=== PATIENT | male | born 1970 | race Caucasian/White ===

== ENCOUNTER → 2016-12-22 | Emergency (ER) | payer BC, OTHER ==
[~2016-12-22] VITALS: Ht 175.3 cm; Wt 81.6 kg
[~2016-12-22] MED LIST: CLINDAMYCIN HC150 MG ORAL; DOCUSATE SODIU100 MG ORAL; FERROUS SULFAT325 MG ORAL; FOLIC ACID1 MG ORAL; HYDROCODON-ACE1 EA15 ORAL; LORazepam 1mg tab ORAL ONE; MIRTAZAPINE15 M3 ORAL; OMEPRAZOLE40 M1 ORAL; PAROXETINE HC12.5 MG ORAL; QUETIAPINE FUM400 MG ORAL; SYNTHROID150 MCG ORAL
[2016-12-22 17:08] VITALS: BP 127/88
[2016-12-22 17:24] LABS: MEAN CORPUSCULAR HEMOGLOBIN 33.7 PG (27.0-31.0); MEAN CORPUSCULAR HGB CONC 33.7 G/DL (32.0-36.0); MEAN CORPUSCULAR VOLUME 100 FL (80-99); MEAN PLATELET VOLUME 6.2 FL (6.5-10.1); PLATELET COUNT 244 K/UL (150-450); RED BLOOD COUNT 3.89 M/UL (4.70-6.10); RED CELL DISTRIBUTION WIDTH 14.7 % (11.6-14.8); WHITE BLOOD COUNT 7.5 K/UL (4.8-10.8)
[2016-12-22 17:36] LABS: ACETAMINOPHEN < 10 ug/mL (10-30); ALANINE AMINOTRANSFERASE 13 U/L (3-41); ALBUMIN/GLOBULIN RATIO 1.4 (1.0-2.7); ALCOHOL 230 mg/dL; ANION GAP 29 (5-15); ASPARTATE AMINO TRANSFERASE 20 U/L (5-40); CARBON DIOXIDE 15 mEQ/L (20-30); CHLORIDE 94 mEQ/L (98-107); CREATININE 1.1 mg/dL (0.7-1.2); GLOMERULAR FILTRATION RATE > 60 mL/min (>60); HEMOLYSIS 7; LIPASE 20 U/L (< 60); POTASSIUM 3.6 mEQ/L (3.4-4.9); SODIUM 138 mEQ/L (135-145); TOTAL PROTEIN 7.2 g/dL (6.6-8.7)
[2016-12-22 18:11] LABS: LYMPHOCYTES % (MANUAL) 12 % (20-45); NEUTROPHILS % (MANUAL) 83 % (45-75); TOTAL CELLS COUNTED 100
[2016-12-22 18:12] LABS: ANISOCYTOSIS 1+; BAND NEUTROPHILS % (MANUAL) 0 % (0-8); BASOPHILS % (MANUAL) 0 % (0-2); EOSINOPHILS % (MANUAL) 0 % (0-3); HYPOCHROMASIA 1+; PLATELET ESTIMATE ADEQUATE; PLATELET MORPHOLOGY NORMAL
[2016-12-22 19:30] VITALS: BP 120/89
[2016-12-22 20:25] VITALS: BP 110/84
[2016-12-22 22:15] VITALS: BP 112/82
--- NOTE | 2016-12-22 23:45 | Emergency Room Report ---
History of Present Illness General Chief Complaint: Alcohol Intoxication Source: EMS (Tereza Osuna) Present Illness HPI 46-year-old male presents to the emergency department by ambulance for drinking alcohol excessively in addition to taking pain medications. Patient states he has a history of schizophrenia and she does not know what medications he takes however he states he has them with him. Patient is reporting chronic dental pain due to poor dentition and states that he is 10 out of 10 pain and he wants to end it all. He states earlier today he was having suicidal ideations due to chronic pain. He states she took some of his prescribed [place]. Patient alludes to potential overdose however he does not admit not taken. Patient reports nausea and vomiting. Denies fevers or chills. Denies blood in the vomit or stool. denies black tarry stools. Denies head trauma or fall. Denies abdominal pain. Denies CP, Palpitations, LOC, AMS, dizziness, Changes in Vision , Sensation, paresthesias, or a sudden severe headache. (Tereza Osuna) Allergies: Coded Allergies: PENICILLINS (Verified Allergy, Unknown, 12/22/16) Patient History Past Medical History: see triage record Past Surgical History: none Pertinent Family History: none Reviewed Nursing Documentation: PMH: Agreed, PSxH: Agreed (Tereza Osuna) Nursing Documentation-PMH Past Medical History: No History, Except For Hx Cancer: Yes - THYROID History Of Psychiatric Problem: Yes - ETOH ABUSE, SCHIZO, DEPRESSION (Tereza Osuna) Review of Systems All Other Systems: negative except mentioned in HPI (Tereza Osuna) Physical Exam Vital Signs Date Time Temp Pulse Resp B/P Pulse Ox O2 Delivery O2 Flow Rate FiO2 12/22/16 15:37 98.1 103 20 127/88 98 Room Air Sp02 EP Interpretation: reviewed, abnormal - tachycardic at 103 bpm General Appearance: no apparent distress, alert, GCS 15, non-toxic Head: normocephalic, atraumatic Eyes: bilateral eye PERRL - no pinpoint pupils, bilateral eye normal inspection ENT: hearing grossly normal, normal pharynx, no angioedema, normal voice, other - no fluctuance to the gumline suggesting abscess or gingivitis. pt. does not have significant dental issues such as cracked teeth. Neck: full range of motion, supple/symm/no masses Respiratory: lungs clear, normal breath sounds, no wheezing, speaking full sentences Cardiovascular #1: regular rate, rhythm, no edema Gastrointestinal: normal bowel sounds, non tender, soft, no guarding, no rebound Rectal: deferred Genitourinary: normal inspection, no CVA tenderness Musculoskeletal: back normal, gait/station normal, normal range of motion, non- tender Neurologic: alert, oriented x3, responsive, motor strength/tone normal, sensory intact, normal gait, speech normal Psychiatric: judgement/insight normal, memory normal, depressed affect - depressed affect and verbalizes chronic dental pain. , anxious, other - pt. is somewhat paranoid, and anxious Skin: normal color, no rash, warm/dry, well hydrated (Tereza Osuna P.AMiroslava) Medical Decision Making PA Attestation Dr. Collado is my supervising Physician whom patient management has been discussed with. (Tereza Osuna P.AMiroslava) Diagnostic Impression: Primary Impression: Acute alcoholic intoxication Qualified Codes: F10.920 - Alcohol use, unspecified with intoxication, uncomplicated ER Course 46-year-old male presents to the emergency department by ambulance for drinking alcohol excessively in addition to taking pain medications. Patient states he has a history of schizophrenia and she does not know what medications he takes however he states he has them with him. Patient is reporting chronic dental pain due to poor dentition and states that he is 10 out of 10 pain and he wants to end it all. He states earlier today he was having suicidal ideations due to chronic pain. He states she took some of his prescribed [place]. Patient alludes to potential overdose however he does not admit not taken. Patient reports nausea and vomiting. Denies fevers or chills. Denies blood in the vomit or stool. denies black tarry stools. Denies head trauma or fall. Denies abdominal pain. Denies CP, Palpitations, LOC, AMS, dizziness, Changes in Vision , Sensation, paresthesias, or a sudden severe headache. Pt has paranoid and depressed affect. Ddx considered but are not limited to OD, SI/HI, psychosis, UTI, intoxication Vital signs: are WNL, pt. is afebrile H&PE are most consistent with behavioral/mental health issue, possible overdose as pt. keeps eluding to OD and depression about chronic dental pain. ORDERS: -CBC, CMP: unremarkable other than dehydration and low glucose. -accucheck : 46, recheck: 86, recheck: 89 -UA: negative for infection see results attached. -UDS: positive only for THC -Salicylates and Acetaminophen - no acute intoxication. -Serum ETOH : 290 ED INTERVENTIONS: - 25 ml D50 -- RN states pt. does not have line, and gave juice instead DISPOSITION: awaiting re-assessment of SI/HI upon sobering. pt. signed out to Dr. Samano Labs Test 12/22/16 16:58 White Blood Count 7.5 K/UL (4.8-10.8) Red Blood Count 3.89 M/UL (4.70-6.10) Hemoglobin 13.1 G/DL (14.2-18.0) Hematocrit 38.9 % (42.0-52.0) Mean Corpuscular Volume 100 FL (80-99) Mean Corpuscular Hemoglobin 33.7 PG (27.0-31.0) Mean Corpuscular Hemoglobin Concent 33.7 G/DL (32.0-36.0) Red Cell Distribution Width 14.7 % (11.6-14.8) Platelet Count 244 K/UL (150-450) Mean Platelet Volume 6.2 FL (6.5-10.1) Neutrophils (%) (Auto) % (45.0-75.0) Lymphocytes (%) (Auto) % (20.0-45.0) Monocytes (%) (Auto) % (1.0-10.0) Eosinophils (%) (Auto) % (0.0-3.0) Basophils (%) (Auto) % (0.0-2.0) Differential Total Cells Counted 100 Neutrophils % (Manual) 83 % (45-75) Lymphocytes % (Manual) 12 % (20-45) Monocytes % (Manual) 5 % (1-10) Eosinophils % (Manual) 0 % (0-3) Basophils % (Manual) 0 % (0-2) Band Neutrophils 0 % (0-8) Platelet Estimate Adequate Platelet Morphology Normal Hypochromasia 1+ Anisocytosis 1+ Sodium Level 138 mEQ/L (135-145) Potassium Level 3.6 mEQ/L (3.4-4.9) Chloride Level 94 mEQ/L (98-107) Carbon Dioxide Level 15 mEQ/L (20-30) Anion Gap 29 (5-15) Blood Urea Nitrogen 18 mg/dL (7-23) Creatinine 1.1 mg/dL (0.7-1.2) Estimat Glomerular Filtration Rate > 60 mL/min (>60) Glucose Level 43 mg/dL (74-106) Calcium Level 9.0 mg/dL (8.6-10.2) Total Bilirubin 0.4 mg/dL (0.0-1.2) Aspartate Amino Transf (AST/SGOT) 20 U/L (5-40) Alanine Aminotransferase (ALT/SGPT) 13 U/L (3-41) Alkaline Phosphatase 87 U/L (40-129) Total Protein 7.2 g/dL (6.6-8.7) Albumin 4.3 g/dL (3.5-5.2) Globulin 2.9 g/dL Albumin/Globulin Ratio 1.4 (1.0-2.7) Lipase 20 U/L (< 60) Salicylates Level < 1 mg/dL (10-30) Urine Opiates Screen Negative (NEGATIVE) Acetaminophen Level < 10 ug/mL (10-30) Urine Barbiturates Screen Negative (NEGATIVE) Phencyclidine (PCP) Screen Negative (NEGATIVE) Urine Amphetamines Screen Negative (NEGATIVE) Urine Benzodiazepines Screen Negative (NEGATIVE) Urine Cocaine Screen Negative (NEGATIVE) Urine Marijuana (THC) Screen Positive (NEGATIVE) Serum Alcohol 230 mg/dL (Tereza Osuna P.A.) ER Course Patient is medically cleared for psychiatric evaluation. The patient is was noted to be on multiple psychiatric medications. Patient was discussed with psychiatric consult. Labs Test 12/22/16 16:58 White Blood Count 7.5 K/UL (4.8-10.8) Red Blood Count 3.89 M/UL (4.70-6.10) Hemoglobin 13.1 G/DL (14.2-18.0) Hematocrit 38.9 % (42.0-52.0) Mean Corpuscular Volume 100 FL (80-99) Mean Corpuscular Hemoglobin 33.7 PG (27.0-31.0) Mean Corpuscular Hemoglobin Concent 33.7 G/DL (32.0-36.0) Red Cell Distribution Width 14.7 % (11.6-14.8) Platelet Count 244 K/UL (150-450) Mean Platelet Volume 6.2 FL (6.5-10.1) Neutrophils (%) (Auto) % (45.0-75.0) Lymphocytes (%) (Auto) % (20.0-45.0) Monocytes (%) (Auto) % (1.0-10.0) Eosinophils (%) (Auto) % (0.0-3.0) Basophils (%) (Auto) % (0.0-2.0) Differential Total Cells Counted 100 Neutrophils % (Manual) 83 % (45-75) Lymphocytes % (Manual) 12 % (20-45) Monocytes % (Manual) 5 % (1-10) Eosinophils % (Manual) 0 % (0-3) Basophils % (Manual) 0 % (0-2) Band Neutrophils 0 % (0-8) Platelet Estimate Adequate Platelet Morphology Normal Hypochromasia 1+ Anisocytosis 1+ Sodium Level 138 mEQ/L (135-145) Potassium Level 3.6 mEQ/L (3.4-4.9) Chloride Level 94 mEQ/L (98-107) Carbon Dioxide Level 15 mEQ/L (20-30) Anion Gap 29 (5-15) Blood Urea Nitrogen 18 mg/dL (7-23) Creatinine 1.1 mg/dL (0.7-1.2) Estimat Glomerular Filtration Rate > 60 mL/min (>60) Glucose Level 43 mg/dL (74-106) Calcium Level 9.0 mg/dL (8.6-10.2) Total Bilirubin 0.4 mg/dL (0.0-1.2) Aspartate Amino Transf (AST/SGOT) 20 U/L (5-40) Alanine Aminotransferase (ALT/SGPT) 13 U/L (3-41) Alkaline Phosphatase 87 U/L (40-129) Total Protein 7.2 g/dL (6.6-8.7) Albumin 4.3 g/dL (3.5-5.2) Globulin 2.9 g/dL Albumin/Globulin Ratio 1.4 (1.0-2.7) Lipase 20 U/L (< 60) Salicylates Level < 1 mg/dL (10-30) Urine Opiates Screen Negative (NEGATIVE) Acetaminophen Level < 10 ug/mL (10-30) Urine Barbiturates Screen Negative (NEGATIVE) Phencyclidine (PCP) Screen Negative (NEGATIVE) Urine Amphetamines Screen Negative (NEGATIVE) Urine Benzodiazepines Screen Negative (NEGATIVE) Urine Cocaine Screen Negative (NEGATIVE) Urine Marijuana (THC) Screen Positive (NEGATIVE) Serum Alcohol 230 mg/dL (Andrew Samano) Last Vital Signs Date Time Temp Pulse Resp B/P Pulse Ox O2 Delivery O2 Flow Rate FiO2 12/22/16 17:08 98.1 79 20 127/88 98 Room Air (Tereza Osuna) Signed Out To: Dr. Samano (Tereza Osuna) Referrals: ROSALIA MESA (PCP) Tereza Osuna Dec 22, 2016 23:45 Andrew Samano Dec 23, 2016 06:28
[2016-12-23] VITALS (8 sets, daily range): BP systolic 130–150; BP diastolic 70–98
--- NOTE | 2016-12-23 06:34 | Emergency Room Report ---
History of Present Illness General Chief Complaint: Alcohol Intoxication Source: Patient, EMS Present Illness HPI Pt signed out to me by Dr. Samano, original seen for etoh intoxication with passive SI. Observed in ED for ~ 12 hours and sober on reexam with current denial of SI. Plan for Psych eval this am. Allergies: Coded Allergies: PENICILLINS (Verified Allergy, Unknown, 12/22/16) Patient History Past Medical History: see triage record Social History: Reports: alcohol use, drug use - thc, Denies: smoking Reviewed Nursing Documentation: PMH: Agreed Nursing Documentation-PMH Past Medical History: No History, Except For Hx Cancer: Yes - THYROID History Of Psychiatric Problem: Yes - ETOH ABUSE, SCHIZO, DEPRESSION Review of Systems All Other Systems: negative except mentioned in HPI Physical Exam Vital Signs Date Time Temp Pulse Resp B/P Pulse Ox O2 Delivery O2 Flow Rate FiO2 12/22/16 15:37 98.1 103 20 127/88 98 Room Air General Appearance: well appearing, no apparent distress, alert Neck: full range of motion, supple Gastrointestinal: soft Medical Decision Making Diagnostic Impression: Primary Impression: Acute alcoholic intoxication Qualified Codes: F10.920 - Alcohol use, unspecified with intoxication, uncomplicated ER Course Currently patient pending evaluation by ED psych. Signed out to Dr. Samano after overnight observation. Mild tremor requiring small of Ativan. No [place] withdrawal noted. Labs reviewed, positive primarily for alcohol and THC. Otherwise normal labs. 1432, at this time psychiatry has evaluated or given and disposition, will sign out to Dr. Quinteros. Laboratory Tests Test 12/22/16 16:58 White Blood Count 7.5 K/UL (4.8-10.8) Red Blood Count 3.89 M/UL (4.70-6.10) L Hemoglobin 13.1 G/DL (14.2-18.0) L Hematocrit 38.9 % (42.0-52.0) L Mean Corpuscular Volume 100 FL (80-99) H Mean Corpuscular Hemoglobin 33.7 PG (27.0-31.0) H Mean Corpuscular Hemoglobin Concent 33.7 G/DL (32.0-36.0) Red Cell Distribution Width 14.7 % (11.6-14.8) Platelet Count 244 K/UL (150-450) Mean Platelet Volume 6.2 FL (6.5-10.1) L Neutrophils (%) (Auto) % (45.0-75.0) Lymphocytes (%) (Auto) % (20.0-45.0) Monocytes (%) (Auto) % (1.0-10.0) Eosinophils (%) (Auto) % (0.0-3.0) Basophils (%) (Auto) % (0.0-2.0) Differential Total Cells Counted 100 Neutrophils % (Manual) 83 % (45-75) H Lymphocytes % (Manual) 12 % (20-45) L Monocytes % (Manual) 5 % (1-10) Eosinophils % (Manual) 0 % (0-3) Basophils % (Manual) 0 % (0-2) Band Neutrophils 0 % (0-8) Platelet Estimate Adequate Platelet Morphology Normal Hypochromasia 1+ Anisocytosis 1+ Sodium Level 138 mEQ/L (135-145) Potassium Level 3.6 mEQ/L (3.4-4.9) Chloride Level 94 mEQ/L (98-107) L Carbon Dioxide Level 15 mEQ/L (20-30) L Anion Gap 29 (5-15) H Blood Urea Nitrogen 18 mg/dL (7-23) Creatinine 1.1 mg/dL (0.7-1.2) Estimat Glomerular Filtration Rate > 60 mL/min (>60) Glucose Level 43 mg/dL (74-106) L Calcium Level 9.0 mg/dL (8.6-10.2) Total Bilirubin 0.4 mg/dL (0.0-1.2) Aspartate Amino Transf (AST/SGOT) 20 U/L (5-40) Alanine Aminotransferase (ALT/SGPT) 13 U/L (3-41) Alkaline Phosphatase 87 U/L (40-129) Total Protein 7.2 g/dL (6.6-8.7) Albumin 4.3 g/dL (3.5-5.2) Globulin 2.9 g/dL Albumin/Globulin Ratio 1.4 (1.0-2.7) Lipase 20 U/L (< 60) Salicylates Level < 1 mg/dL (10-30) L Urine Opiates Screen Negative (NEGATIVE) Acetaminophen Level < 10 ug/mL (10-30) L Urine Barbiturates Screen Negative (NEGATIVE) Phencyclidine (PCP) Screen Negative (NEGATIVE) Urine Amphetamines Screen Negative (NEGATIVE) Urine Benzodiazepines Screen Negative (NEGATIVE) Urine Cocaine Screen Negative (NEGATIVE) Urine Marijuana (THC) Screen Positive (NEGATIVE) H Serum Alcohol 230 mg/dL Last Vital Signs Date Time Temp Pulse Resp B/P Pulse Ox O2 Delivery O2 Flow Rate FiO2 12/23/16 04:55 98.2 82 16 135/82 100 Room Air Status: improved Condition: Improved Referrals: GOOD ROSALIA BLANCO (PCP) Manjit Manzanares MD Dec 23, 2016 06:34
--- NOTE | 2016-12-23 15:04 | Consultation ---
History of Present Illness General Chief Complaint: Alcohol Intoxication Present Illness HPI 46-year-old male with hx schizoaffective d/o and alcohol dependence presents to the emergency department by ambulance for drinking alcohol excessively and stopped his psych meds. the pt stated that he didn't take pain meds. the pt was recently discharged from [facility] [place]. the pt had a in 2011 and he lost everything. he has hx of alcoholism and he relapsed. the pt has a ellie and has been talking to him last week. the pt has good support system in terms of alcohol dependence. the pt doesn't endorse psychotic/ manic sxs. the pt mariam not endorse si however stated that he has been depressed since his divorce in 2011 and lost the custody of his children. the pt also had concern about a lesion on his left forearm that is "itchy" and bleeds at time. the pt was encouraged to see a rubber stamp maker. the pt asked me to "go through his medications and make adjustment" the pt also stated that he needs psychiatric referral. as well as referal to substance use program. the pt went is going through a break up and that triggered the break up. Allergies: Coded Allergies: PENICILLINS (Verified Allergy, Unknown, 12/22/16) Medication History Scheduled Clindamycin Hcl* (Clindamycin Hcl*), 300 MG ORAL THREE TIMES A DAY, (Reported) Docusate Sodium* (Docusate Sodium*), 100 MG ORAL TWICE A DAY, (Reported) Ferrous Sulfate* (Ferrous Sulfate*), 325 MG ORAL TWICE A DAY, (Reported) Folic Acid* (Folic Acid*), 1 MG ORAL DAILY, (Reported) Levothyroxine Sodium* (Synthroid*), 200 MCG ORAL DAILY, (Reported) Mirtazapine* (Mirtazapine*), 15 MG ORAL BEDTIME, (Reported) Omeprazole (Omeprazole), 40 MG ORAL DAILY, (Reported) Paroxetine Hcl* (Paroxetine Hcl*), 20 MG ORAL DAILY, (Reported) Quetiapine Fumarate* (Quetiapine Fumarate*), 300 MG ORAL BEDTIME, (Reported) Scheduled PRN Hydrocodone/Acetaminophen 5-325* (Hydrocodone/Acetaminophen 5-325*), 1 TAB ORAL BID PRN for For Pain, (Reported) Patient History Limited by: medical condition History Provided By: Patient, Significant Other, PMD Healthcare decision maker Resuscitation status Advanced Directive on File Past Medical/Surgical History Past Medical/Surgical History: (1) Acute alcoholic intoxication Review of Systems Psychiatric: Reports: anxiety, depressed feelings, emotional problems, prior hx Physical Exam General Appearance: no apparent distress, alert, thin Neurologic: alert, oriented x 3, responsive, depressed affect Last 24 Hour Vital Signs Date Time Temp Pulse Resp B/P Pulse Ox O2 Delivery O2 Flow Rate FiO2 12/23/16 11:48 98.2 76 16 150/93 98 Room Air 12/23/16 11:18 97.4 90 16 135/92 98 Room Air 12/23/16 07:15 98.6 72 16 147/98 98 Room Air 12/23/16 06:40 98.4 80 14 130/84 99 Room Air 12/23/16 04:55 98.2 82 16 135/82 100 Room Air 12/23/16 03:05 98.4 79 15 140/85 99 Room Air 12/23/16 00:54 98.5 89 14 143/87 100 Room Air 12/22/16 22:15 79 16 112/82 100 Room Air 12/22/16 20:25 98.4 84 17 110/84 99 Room Air 12/22/16 19:30 98.2 80 19 120/89 99 Room Air 12/22/16 17:08 98.1 79 20 127/88 98 Room Air 12/22/16 15:37 98.1 103 20 127/88 98 Room Air Intake and Output 12/22/16 12/23/16 19:00 07:00 Intake Total 120 ml Output Total 400 ml Balance 120 ml -400 ml Intake Oral 120 ml Output Urine Total 400 ml # Voids 1 Laboratory Tests Test 12/22/16 16:58 12/23/16 09:25 White Blood Count 7.5 K/UL (4.8-10.8) Red Blood Count 3.89 M/UL (4.70-6.10) L Hemoglobin 13.1 G/DL (14.2-18.0) L Hematocrit 38.9 % (42.0-52.0) L Mean Corpuscular Volume 100 FL (80-99) H Mean Corpuscular Hemoglobin 33.7 PG (27.0-31.0) H Mean Corpuscular Hemoglobin Concent 33.7 G/DL (32.0-36.0) Red Cell Distribution Width 14.7 % (11.6-14.8) Platelet Count 244 K/UL (150-450) Mean Platelet Volume 6.2 FL (6.5-10.1) L Neutrophils (%) (Auto) % (45.0-75.0) Lymphocytes (%) (Auto) % (20.0-45.0) Monocytes (%) (Auto) % (1.0-10.0) Eosinophils (%) (Auto) % (0.0-3.0) Basophils (%) (Auto) % (0.0-2.0) Differential Total Cells Counted 100 Neutrophils % (Manual) 83 % (45-75) H Lymphocytes % (Manual) 12 % (20-45) L Monocytes % (Manual) 5 % (1-10) Eosinophils % (Manual) 0 % (0-3) Basophils % (Manual) 0 % (0-2) Band Neutrophils 0 % (0-8) Platelet Estimate Adequate Platelet Morphology Normal Hypochromasia 1+ Anisocytosis 1+ Sodium Level 138 mEQ/L (135-145) Potassium Level 3.6 mEQ/L (3.4-4.9) Chloride Level 94 mEQ/L (98-107) L Carbon Dioxide Level 15 mEQ/L (20-30) L Anion Gap 29 (5-15) H Blood Urea Nitrogen 18 mg/dL (7-23) Creatinine 1.1 mg/dL (0.7-1.2) Estimat Glomerular Filtration Rate > 60 mL/min (>60) Glucose Level 43 mg/dL (74-106) L Calcium Level 9.0 mg/dL (8.6-10.2) Total Bilirubin 0.4 mg/dL (0.0-1.2) Aspartate Amino Transf (AST/SGOT) 20 U/L (5-40) Alanine Aminotransferase (ALT/SGPT) 13 U/L (3-41) Alkaline Phosphatase 87 U/L (40-129) Total Protein 7.2 g/dL (6.6-8.7) Albumin 4.3 g/dL (3.5-5.2) Globulin 2.9 g/dL Albumin/Globulin Ratio 1.4 (1.0-2.7) Lipase 20 U/L (< 60) Salicylates Level < 1 mg/dL (10-30) L Urine Opiates Screen Negative (NEGATIVE) Acetaminophen Level < 10 ug/mL (10-30) L Urine Barbiturates Screen Negative (NEGATIVE) Phencyclidine (PCP) Screen Negative (NEGATIVE) Urine Amphetamines Screen Negative (NEGATIVE) Urine Benzodiazepines Screen Negative (NEGATIVE) Urine Cocaine Screen Negative (NEGATIVE) Urine Marijuana (THC) Screen Positive (NEGATIVE) H Serum Alcohol 230 mg/dL < 10 mg/dL Height (Feet): 5 Height (Inches): 9.00 Weight (Pounds): 180 Medications Current Medications Medications (Trade) Dose Ordered Sig/Trisha Route PRN Reason Start Time Stop Time Status Last Admin Dose Admin Ondansetron HCl (Zofran) 4 mg Q6H PRN ORAL Nausea & Vomiting 12/23/16 05:45 01/22/17 05:44 12/23/16 05:46 Assessment/Plan Status: stable, progressing Assessment/Plan alcohol dependence. schizoaffective depressed type -the pt is not meeting the criteria for hold -he prefers to go to an outpatient program. -the pt will be given psych referals -sw consult -dc remeron -seroquel 300mg qhs -paxil 20mg qhs Debra Louise M.D. Dec 23, 2016 15:04
== END | disposition home or self-care (01) ==
LOC: EDBD 15:44 → EMR 18:40
DX: F10.920 Alcohol use, unspecified with intoxication, uncomplicated (principal); F25.1 Schizoaffective disorder, depressive type; G89.29 Other chronic pain; K08.89 Other specified disorders of teeth and supporting structures; R45.851 Suicidal ideations; R11.2 Nausea with vomiting, unspecified; F41.9 Anxiety disorder, unspecified; Z88.0 Allergy status to penicillin; Z85.850 Personal history of malignant neoplasm of thyroid
CPT/HCPCS: 36415; 80053; 80300; 82962; 83690; 85007; 85025; 99284; G0480; 80329